=== PATIENT | female | born 1970 ===

== ENCOUNTER 2017-03-18 01:19 | Emergency (ER) | payer SELFPAY ==
--- NOTE | 2017-03-18 01:55 | C.PDOC ---
History Of Present Illness Patient presents to the ER after having a seizure [employer] witnessed by family. Patient's last reported seizure was in 2004, she is nonambulatory, nonverbal, and intellectually challenged at baseline. Hx obtained via family at bedside. Time Seen by Provider: 03/18/17 01:54 Chief Complaint (Nursing): Seizure History Per: Family History/Exam Limitations: no limitations Recent Seizure Activity Began: Just Before Arrival Number Of Seizures: One Length Of Seizures (Duration): Unknown Quality Of Seizure: Generalized Precipitating Factor(s): Other (Not known) Post-ictal Period: No Recent travel outside of the [place]: No Past Medical History Reviewed: Historical Data, Nursing Documentation, Vital Signs Vital Signs: Last Vital Signs Temp 97.4 F L 03/18/17 01:38 Pulse 84 03/18/17 01:38 Resp 20 03/18/17 01:38 BP 84/55 L 03/18/17 01:38 Pulse Ox 98 03/18/17 02:17 - Medical History PMH: Gastritis, Seizures Surgical History: No Surg Hx Family History: States: Unknown Family Hx - Social History Hx Alcohol Use: No Hx Substance Use: No - Immunization History Hx Tetanus Toxoid Vaccination: Yes Hx Influenza Vaccination: Yes Review Of Systems Review Of Systems: ROS cannot be obtained secondary to pt's inabilty to answer questions. Physical Exam - Physical Exam Appears: Non-toxic, Other (Awake, alert, orientedx1) Skin: Warm, Dry Head: Normacephalic Oral Mucosa: Moist Chest: Symmetrical Cardiovascular: Rhythm Regular Respiratory: No Rales, No Rhonchi, No Wheezing Gastrointestinal/Abdominal: Soft, No Tenderness Extremity: Other (Leg contracted) ED Course And Treatment - Laboratory Results Result Diagrams: 03/18/17 02:08 03/18/17 02:08 O2 Sat by Pulse Oximetry: 98 (Room air) Pulse Ox Interpretation: Normal Progress Note: Blood work ordered. Reevaluation Time: 04:02 Reassessment Condition: Improved Disposition Counseled Patient/Family Regarding: Studies Performed, Diagnosis, Need For Followup, Rx Given - Disposition Referrals: [facility] [Outside] Department [facility] [Outside] Disposition: HOME/ ROUTINE Disposition Time: 01:54 Condition: FAIR Prescriptions: Phenytoin, Extended [Dilantin Kapseals] 100 mg PO DAILY #30 cer Instructions: Epilepsy (DC) Forms: [facility] (Indonesian) - Clinical Impression Clinical Impression: Seizure - Scribe Statement The provider has reviewed the documentation as recorded by the Scribe Flip Dudley All medical record entries made by the Scribe were at my direction and personally dictated by me. I have reviewed the chart and agree that the record accurately reflects my personal performance of the history, physical exam, medical decision making, and the department course for this patient. I have also personally directed, reviewed, and agree with the discharge instructions and disposition.
[2017-03-18 02:14] LABS: BASO # 0.1 K/uL (0.0-0.2); BASO % 0.5 % (0.0-2.0); EOS # 0.1 K/uL (0.0-0.7); EOS % 0.8 % (0.0-4.0); HEMATOCRIT 38.3 % (34.0-47.0); LYMPH # 5.4 K/uL (1.0-4.3); LYMPH % 52.9 % (20.0-40.0); MEAN CELL VOLUME 85.1 fL (81.0-99.0); MEAN CORPUSCULAR HEMOGLOBIN 27.2 pg (27.0-31.0); MEAN PLATELET VOLUME 9.3 fL (7.2-11.7); MONO # 0.6 K/uL (0.0-0.8); MONO % 6.2 % (0.0-10.0); NRBC % 0.1 % (0.0-2.0); RED CELL DISTRIBUTION WIDTH 15.7 % (11.5-14.5); WHITE BLOOD COUNT 10.3 K/uL (4.8-10.8)
[2017-03-18 02:38] LABS: BLOOD UREA NITROGEN 13 mg/dL (7-17); CALCIUM 7.9 mg/dl (8.6-10.4); CARBON DIOXIDE 17 mmol/L (22-30); CHLORIDE 102 mmol/L (98-107); GFR AFRICAN-AMERICAN > 60; GLUCOSE,RANDOM 110 mg/dL (65-105); POTASSIUM 3.6 mmol/L (3.6-5.2); SODIUM 135 mmol/L (132-148)
[2017-03-18] MEDS ORDERED: Fosphenytoin 1,000 MG in Sodium Chloride 0.9% 50 ML IV STA (02:57)
[2017-03-18 04:25] VITALS: BP 77/39; PULSE 78; RESP 18; TEMP 97.9; O2SAT 97
== END 2017-03-18 04:25 | disposition home or self-care (01) ==
LOC: C.ER 01:19
DX: G40.909 Epilepsy, unspecified, not intractable, without status epilepticus (principal)
CPT/HCPCS: 80048; 80185; 82948; 85025; 96365; 99285; Q2009